=== PATIENT | male | born 1975 | race Caucasian/White ===

== ENCOUNTER 2016-09-26 13:21 | Day surgery (SDC) | payer OTHER ==
[~2016-09-26] VITALS: Ht 177.8 cm; Wt 83.9 kg
[~2016-09-26 13:21] MED LIST: FLEXERIL10 MG PO; GABAPENTIN300 MG PO; KEFLEX 500MG.500 MG PO; NAPROXEN SODIU500 MG PO
[2016-09-26 13:32] VITALS: BP 148/90
[2016-09-26] MEDS ORDERED: PRILOSEC OTC20 MG PO (13:47)
[2016-09-26] MEDS ORDERED: MULTIVITAMIN1 SGL PO (13:47)
[2016-09-26 13:57] VITALS: BP 148/90
[2016-09-26 13:58] VITALS: BP 130/53
--- NOTE | 2016-09-26 14:03 | Procedure Note ---
Procedure detail Date of procedure: 09/26/16 Anesthesiologist: Sunday zavala CRNA Complications: None Pre-procedure diagnosis: Degenerative disease cervical spine. Cervical radiculopathy symptoms. Post-procedure diagnosis: Same. Indications for procedure: This patient is a very pleasant 40-year-old white male with cervical neck pain as well as LEFT shoulder radiculopathy symptoms. Patient describes a cervical neck pain as constant, dull, aching. Patient states pain intensifies in flexion and/or extension. Patient rates the pain 8/10. Patient also complaining of LEFT shoulder radiculopathy symptoms at times. Patient currently taking gabapentin 300 mg 1 by mouth 3 times a day. Also naproxen 1000 mg a day. Patient has been to 24 weeks of physical therapy with some improvement in his radicular symptoms. However, his cervical neck pain continues. I discussed in detail with the patient and the disease case manager regarding cervical epidural steroid injections. His cervical spine MRI does show slight posterior lateral spurring from C3-4 to C6- 7. A slight retrolisthesis and mild anterior spurring our president C6-7. Degenerative changes cervical spine. No stenosis noted. 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 Procedure detail: Procedure:Cervical epidural steroid injection Informed consent was obtained and the risks and benefits of the procedure were explained to the patient. The patient was taken to the procedure room and noninvasive monitors placed, including noninvasive blood pressure cuff and pulse oximeter. The neck was prepped using Betadine as a cleansing solution. The C6-C7 interspace was palpated. The skin and subcutaneous tissues were anesthetized using lidocaine 1.5% and a 25-gauge needle. After this an 18-gauge Touhy epidural needle was placed into the C6-C7 interspace and advanced using loss of resistance to air until the epidural space was encountered. After confirmation of needle placement in the epidural space, a solution containing lidocaine 1.5%, 4 mL and Depo-Medrol 80 mg was incrementally injected into the cervical epidural space.~ The patient tolerated the procedure well with no complications. The patient was observed in the Pain Clinic and then discharged home neurologically intact. Plan and disposition: Patient was reevaluated 10 minutes post procedure. Patient is well. We'll consult in the pain clinic for further evaluation. at 1405
[2016-09-26 14:12] VITALS: BP 138/91
== END 2016-09-26 14:15 | disposition home or self-care (01) ==
LOC: PM 13:21
PROC: 3E0R33Z Introduction of Anti-inflammatory into Spinal Canal, Percutaneous Approach (ICD-10-PCS; principal; 2016-09-26)
PROC: 3E0R3BZ Introduction of Anesthetic Agent into Spinal Canal, Percutaneous Approach (ICD-10-PCS; 2016-09-26)
DX: M50.10 Cervical disc disorder with radiculopathy, unspecified cervical region (principal)
CPT/HCPCS: J1040; Q9966